=== PATIENT | female | born 1995 | race Caucasian/White ===

== ENCOUNTER 2020-08-11 09:02 | Emergency (ER) | payer OTHER, SELFPAY ==
--- NOTE | 2020-08-11 09:06 | ED.URI ---
HPI - URI/Sore Throat General Chief Complaint: Upper Respiratory Infection Stated Complaint: Sore Throat Time Seen by Provider: 08/11/20 09:20 Source: patient and RN notes reviewed Mode of arrival: ambulatory Limitations: no limitations History of Present Illness HPI Narrative: 25-year-old female presents with concern for sore throat. Reports she went to the dentist on Wednesday, the next morning woke up with a burning and sore throat. Reports sore throat is worse in the morning and improves slightly throughout the day. She denies any other symptoms such as rhinorrhea, nasal congestion, fever, ear pain, headache, nausea, vomiting, diarrhea, body aches, chills, sweats, cough, shortness of breath, loss of taste and smell. Denies any intervention MD elicited complaint: sore throat Related Data Home Medications Medication Instructions Recorded Confirmed No Home Medications 08/11/20 08/11/20 Allergies Allergy/AdvReac Type Severity Reaction Status Date / Time naproxen Allergy Severe SHORTNESS Verified 08/11/20 09:12 OF BREATH,CARDIAC ARREST Review of Systems Review of Systems: Narrative: CONSTITUTIONAL: Denies malaise, chills, sweats, or fever. EYES: Denies visual changes, redness, or discharge. ENT: Denies rhinorrhea, congestion, sinus pain, otalgia. Reports sore throat. CARDIOVASCULAR: Denies chest pain, palpitations, or edema. RESPIRATORY: Denies cough or dyspnea. GASTROINTESTINAL: Denies abdominal pain, nausea, vomiting, diarrhea SKIN: Denies rash or itching. MUSCULOSKELETAL: Denies myalgia. NEUROLOGIC: Denies headache. All systems reviewed & are unremarkable except as noted in HPI and below PMFSH Social History Social History (System 12/19/19 @ 13:24 by Melody Mendieta) Smoking status: Never smoker Second hand tobacco smoke exposure: No Alcohol intake: never Gender identity (if verbalized by the patient): Female Comments At time of signature, agree with nursing past medical, surgical, social and family history. There is no relevant family history pertinent to the presenting complaint Exam Narrative: Exam Narrative: GENERAL: Well-appearing, well-nourished, and in no acute distress. HEAD: Normocephalic EYES: PERRLA, conjunctivae clear ENT: Nares clear, turbinates mildly edematous and erythematous, clear discharge. Mucous membranes moist. TM pearly torre with sharp light reflex bilaterally; no tragal tenderness. Oropharynx not erythematous without lesions. Tonsils not enlarged and without exudate, no drooling, no hoarseness, no trismus, uvula midline. NECK: Supple. No lymphadenopathy CHEST: Clear to auscultation, breath sounds equal. No wheezing, rhonchi, rales, or stridor. No respiratory distress, speaks in full sentences. HEART: Regular rate and rhythm. No murmur heard. SKIN: Warm, dry, no rash. NEURO: Alert and oriented x3. PSYCH: Normal mood and affect Course Course Emergency Course: Patient is aware of diagnosis, understands and agrees to treatment plan. Anticipatory guidance given. Patient agrees to follow-up as directed and is aware of reasons to seek care at the emergency department. Portions of this record may have been created with voice recognition software Vital Signs Vital signs: Vital Signs Temperature 97.2 F L 08/11/20 09:19 Pulse Rate 75 08/11/20 09:19 Respiratory Rate 18 08/11/20 09:19 Blood Pressure 120/83 08/11/20 09:19 Pulse Oximetry 100 08/11/20 09:19 Temperature 97.2 F L 08/11/20 09:19 Pulse Rate 75 08/11/20 09:19 Respiratory Rate 18 08/11/20 09:19 Blood Pressure 120/83 08/11/20 09:19 Pulse Oximetry 100 08/11/20 09:19 Reviewed. MDM - URI/Sore Throat MDM Narrative Medical decision making narrative: Differential diagnosis considered: [place]a virus, strep pharyngitis, allergic rhinitis, upper respiratory tract infection, sinusitis, rhinosinusitis, nasopharyngitis. viral pharyngitis, otitis media, otitis externa, pneumonia,
[2020-08-11 09:19] VITALS: BP 120/83; PULSE 75; RESP 18; TEMP 36.2; O2SAT 100
== END 2020-08-11 09:56 | disposition home or self-care (01) ==
PROVIDERS: Emergency Provider Nurse Practitioner
DX: J02.9 Acute pharyngitis, unspecified (principal); Z20.822 Contact with and (suspected) exposure to COVID-19
CPT/HCPCS: 87081; 87426; 87880; 99213; C9803; G0463

== ENCOUNTER → 2021-07-04 11:59 | Outpatient (CLI) | payer OTHER, SELFPAY ==
--- NOTE | ~2021-07-04 | MR_ITS ---
EXAMINATION: MR brain/brain stem wo con DATE: 07/04/2021 12:46 INDICATION: Benign paroxysmal vertigo, unspecified ear. TECHNIQUE: Magnetic resonance imaging (MRI) of the brain and brainstem was performed without intraven ous contrast. Sequences included sagittal and axial T1-weighted FSE, axial diffusion-weighted FS EPI, axial T2*-weighted GRE, axial T2-weighted FLAIR Propeller, and axial T2-weighted Propeller. Apparent diffusion coefficient (ADC) maps were created. COMPARISON: Brain MRI 05/15/2013, head CT 06/22/2013 FINDINGS: There is no intracranial hemorrhage, acute infarction, or abnormal intracranial mass lesion . The ventricles are normal in size. The paranasal sinuses are clear. The orbits are normal. There ar e bilateral mastoid effusions. IMPRESSION: 1. Normal brain. 2. Bilateral mastoid effusions. Reviewed, dictated and finalized at location A. B THERAPIST
== END ==
PROVIDERS: Visit Provider Otolaryngology
DX: H81.10 Benign paroxysmal vertigo, unspecified ear (principal); H74.8X3 Other specified disorders of middle ear and mastoid, bilateral
CPT/HCPCS: 70551

== ENCOUNTER 2021-08-28 17:55 | Emergency (ER) | payer OTHER, SELFPAY ==
--- NOTE | 2021-08-28 18:04 | ED.GENADULT ---
HPI - General Adult General Chief complaint: Fever Stated complaint: bodyaches/vag bleeding (PG 4 weeks?) Time Seen by Provider: 08/28/21 18:00 Source: patient, RN notes reviewed and old records reviewed Mode of arrival: ambulatory Limitations: no limitations History of Present Illness HPI narrative: 26-year-old female presents to the [facility] with body aches and fever since yesterday. Also reports vaginal bleeding and had a Home positive test 2 weeks ago. Patient denies any chest pain or shortness of breath, states it feels like her heart is racing. Patient does report generalized abdominal discomfort especially between her hips. Had a baby 5 months ago. Denies nausea or vomiting. Denies urinary symptoms Related Data Home Medications Medication Instructions Recorded Confirmed labetalol 100 mg tablet 100 mg PO Q12H 05/19/21 meclizine 25 mg tablet 25 mg PO BID 05/19/21 norethindrone (contraceptive) 0.35 0.35 mg PO DAILY 05/19/21 mg tablet Allergies Allergy/AdvReac Type Severity Reaction Status Date / Time naproxen Allergy Severe SHORTNESS Verified 07/09/21 14:22 OF BREATH,CARDIAC ARREST Review of Systems Review of Systems: All systems reviewed & are unremarkable except as noted in HPI and below Constitutional: Constitutional: Reports as per HPI, Reports chills, Reports fever(s) and Reports weakness Eyes: Eyes: Reports no additional eye complaints ENT: Reports system reviewed and no additional complaints, except as documented, Denies dysphagia and Denies sore throat Cardiovascular: Cardiovascular: Reports no additional cardiovascular complaints and Denies chest pain Respiratory: Respiratory: Reports no additional respiratory complaints, Denies chest congestion, Denies cough, Denies dyspnea and Denies wheezing Gastrointestinal: Gastrointestinal: Reports as per HPI, Reports abdominal pain, Denies diarrhea, Denies nausea and Denies vomiting Genitourinary: Genitourinary: Reports no additional female genitourinary complaints, Denies nocturia and Denies dysuria Comments: Reports she had a positive home test 2 weeks ago, had vaginal bleeding for a couple of weeks Musculoskeletal: Musculoskeletal: Reports as per HPI, Reports back pain, Reports myalgias and Reports muscle cramps Integumentary/Breasts: Skin/Breast: Reports system reviewed and no additional complaints, except as docu Neurologic: Reports system reviewed and no additional complaints, except as documented Psychiatric: Psychiatric: Reports no additional psychiatric complaints Allergic/Immunologic: Allergic/Immunologic: Reports no additional allergic/immunologic complaints [facility] Past Medical History Medical History (Updated 08/28/21 @ 18:36 by Shannan Neves) Arnold-Chiari deformity Asthma Family History Family History Mother Hypertension Social History Social History Smoking status: Never smoker Second hand tobacco smoke exposure: No Alcohol intake: never Gender identity (if verbalized by the patient): Female Comments At the time of my signature, I reviewed and agree with the nursing past medical, surgical, social, and family history. There is no relevant family history pertinent to the patient complaint. Exam Const: General: alert, acute distress moderate (Pain), ill appearing acutely (Moderately) and well groomed Nutritional Appearance: well nourished Orientation/consciousness: patient oriented x3 Limitations: no limitations HENMT: Head: normal to inspection Ears: external ears normal Eyes: Pupils: Equal, round and reactive pupils present Neck: Neck: normal visual inspection, no lymphadenopathy and no meningeal signs Chest: Chest palpation & inspection: normal inspection of the chest Resp: Effort & Inspection: normal respiratory effort and no use of accessory muscles Auscultation: clear
[2021-08-28 18:10] VITALS: BP 151/87; PULSE 137; RESP 22; TEMP 37.9; O2SAT 100
--- NOTE | 2021-08-28 18:23 | ECG_ITS ---
Measurements Intervals [place] Rate: 136 P: 71 UT: 165 QRS: 28 QRSD: 81 T: 21 QT: 331 QTc: 498 Interpretive Statements SINUS TACHYCARDIA NONSPECIFIC ST & T-WAVE ABNORMALITY- ANTEROLAT/INF LEADS BASELINE ARTIFACT- I, II, AVR ABNORMAL ECG Electronically Signed On 08-28-2021 20:31:38 [employer]RE[employer] OFFICER [employer]GEANT by Robert Dumont D.O.
== END 2021-08-28 18:30 | disposition short-term general hospital (02) ==
PROVIDERS: Emergency Provider Nurse Practitioner; PCP Nurse Practitioner Family
DX: O26.899 Other specified pregnancy related conditions, unspecified trimester (principal); R10.31 Right lower quadrant pain; O99.411 Diseases of the circulatory system complicating pregnancy, first trimester; Z3A.01 Less than 8 weeks gestation of pregnancy; O99.891 Other specified diseases and conditions complicating pregnancy; R50.9 Fever, unspecified; J45.909 Unspecified asthma, uncomplicated; Q07.00 Arnold-Chiari syndrome without spina bifida or hydrocephalus
CPT/HCPCS: 81003; 81025; 87804; 93005; 99213; G0463

== ENCOUNTER 2021-08-28 18:45 | Emergency (ER) | payer OTHER, SELFPAY ==
--- NOTE | ~2021-08-28 | US_ITS ---
EXAMINATION: US OB <=14 wk fetus w TV DATE: 08/28/2021 20:01 INDICATION: Right adnexal pain. TECHNIQUE: Real-time transabdominal and transvaginal pelvic ultrasound was performed. COMPARISON: None. FINDINGS: TRANSABDOMINAL ULTRASOUND: The uterus measures 7.6 x 4.5 x 5.9 cm. TRANSVAGINAL ULTRASOUND: The endometrial complex measures 21 mm in thickness. There is no intrauterin e gestational sac. There are nabothian cysts in the cervix. The right ovary measures 3.3 x 2.2 x 2.1 cm. The right ovary, there is a 16 mm cyst containing a 4 mm cyst. The left ovary measures 4.0 x 2.9 x 2.7 cm. There is a 3.0 cm cyst in left ovary. There is normal vascular flow in the ovaries. There is trace free fluid in the pelvis. IMPRESSION: 1. No visible intrauterine gestational sac, which may be normal in early . Ectopic pregnanc y and spontaneous are not excluded. Note that the 16 mm cyst in right ovary could be a benig n cyst, but a gestational sac could have the same appearance. Serial beta-hCGs are recommended. Reviewed, dictated and finalized at location E. OS ARCHITECT IMPRESSION: 1. No visible intrauterine gestational sac, which may be normal in early pregn jose m. Ectopic and spontaneous are not excluded. Note that th e 16 mm cyst in right ovary could be a benign cyst, but a gestational sac could have the same appearance. Serial beta-hCGs are recommended.
--- NOTE | ~2021-08-28 | CT_ITS ---
EXAMINATION: CT abdomen pelvis w con DATE: 08/28/2021 20:38 INDICATION: Right lower quadrant abdominal pain. Fever. Vaginal bleeding. TECHNIQUE: Computed tomography (CT) of the abdomen and pelvis was performed with 100 mL Omnipaque 350 intravenous contrast. Automated exposure control and iterative reconstruction technique were employe d. The dose-length product was 920.68 mGy-cm. COMPARISON: CT abdomen and pelvis 08/31/2017 FINDINGS: The visualized portions of the lung bases demonstrate mild atelectasis. No pleural effusion . The heart size is normal. No pericardial effusion. The liver, gallbladder, spleen, pancreas, adrena l glands, and kidneys are normal. There are no dilated loops of bowel. The appendix is normal. There are nabothian cysts in the cervix. There are no pathologically enlarged lymph nodes. There is no free intraperitoneal fluid. The spine is unremarkable. IMPRESSION: 1. No etiology for the patient's symptoms. Reviewed, dictated and finalized at location E. ANICAL ADJUSTER
[2021-08-28 18:48] VITALS: BP 147/104; PULSE 137; RESP 20; TEMP 38.6; O2SAT 98
[2021-08-28 19:32] LABS: Basophils Percent Auto 0.3 % (0.2-1.2); Eosinophils Absolute Auto 0.1 K/mm3 (0-0.3); Eosinophils Percent Auto 0.5 % (0-4.4); Hematocrit 42.4 % (37.0-47.0); Hemoglobin 13.9 g/dL (12.0-15.0); Immature Granulocyte Absolute 0.03 K/mm3 (0.00-0.031); Immature Granulocyte Percent A 0.2 % (0-0.5); Lymphocytes Absolute Auto 1.45 K/mm3 (0.9-3.2); Lymphocytes Percent Auto 10.9 % (18.3-44.2); Mean Corpuscular HGB Conc 32.8 g/dl (32-36); Mean Corpuscular Hemoglobin 29.1 pg (26-34); Mean Corpuscular Volume 88.9 fl (80-100); Mean Platelet Volume 10.4 fl (7.4-10.4); Monocytes Percent Auto 7.6 % (2.6-8.5); Neutrophils Absolute Auto 10.8 K/mm3 (1.3-6.7); Neutrophils Percent Auto 80.5 % (45.5-73.1); Platelet Count Result 208 k/mm3 (150-375); Red Blood Count 4.77 M/mm3 (4.2-5.4); Red Cell Distribution Width 11.9 % (11.5-14.5); White Blood Count 13.4 K/mm3 (4.5-10.0)
[2021-08-28 19:42] LABS: INR 0.9; Prothrombin Time 12.4 Seconds (11.1-14.7)
[2021-08-28 19:43] LABS: Partial Thromboplastin Time 26.9 SECONDS (22.3-36.8)
[2021-08-28 19:47] LABS: Alanine Aminotransferase 40 U/L (4-35); Albumin Level 4.5 g/dL (3.5-5.1); Alkaline Phosphatase 96 U/L (38-126); Anion Gap 7 mmol/L (8-16); Aspartate Amino Transferase 40 U/L (14-36); Bilirubin,Total 0.4 mg/dL (0.2-1.3); Blood Urea Nitrogen 9 mg/dL (7-17); Calcium 9.8 mg/dL (8.4-10.2); Carbon Dioxide 24 mmol/L (22-30); Chloride 107 mmol/L (98-107); Estimated CRCL calculation 104 ml/min; Estimated Glomerular Filt Rate > 60; Glucose 105 mg/dL (65-110); Lipase 59 U/L (23-300); Potassium 3.7 mmol/L (3.4-5.0); Sodium 138 mmol/L (137-145)
[2021-08-28 20:03] LABS: Beta HCG Quantitative < 2.39 mIU/ML
--- NOTE | 2021-08-28 20:23 | ED.ABDPAIN ---
HPI - Abdominal Pain General Chief Complaint: Abdominal Pain <Ilan Weinberg MD - Last Filed: 08/28/21 21:35> Stated Complaint: abd pain <Ilan Weinberg MD - Last Filed: 08/28/21 21:35> Time Seen by Provider: 08/28/21 18:55 <Ilan Weinberg MD - Last Filed: 08/28/21 21:35> History of Present Illness HPI narrative: Patient is a 26-year-old female who presents ER with right lower quadrant abdominal pain. Patient reports pain has been ongoing over the last week increasing each day. She has developed fever over the last couple days and fever would not go away despite taking medication today. Pain is worse with movement. She reports that she had been having some vaginal bleeding for about 1 month. It stopped about 1 week ago and she developed some discharge. She had a positive test 2 weeks ago. She has not followed up regarding this positive test. Urine negative at the urgent care that she visited prior to arrival here. Patient is not breast-feeding. No history of STI in the past. No breast pain or redness. <Ilan Weinberg MD - Last Filed: 08/28/21 21:35> Related Data Home Medications: Home Medications Medication Instructions Recorded Confirmed labetalol 100 mg tablet 100 mg PO Q12H 05/19/21 meclizine 25 mg tablet 25 mg PO BID 05/19/21 norethindrone (contraceptive) 0.35 0.35 mg PO DAILY 05/19/21 mg tablet <Ilan Weinberg MD - Last Filed: 08/28/21 21:35> Allergies/Adverse Reactions: Allergies Allergy/AdvReac Type Severity Reaction Status Date / Time naproxen Allergy Severe SHORTNESS Verified 07/09/21 14:22 OF BREATH,CARDIAC ARREST <Ilan Weinberg MD - Last Filed: 08/28/21 21:35> Review of Systems Review of Systems: All systems reviewed & are unremarkable except as noted in HPI and below <Ilan Weinberg MD - Last Filed: 08/28/21 21:35> Constitutional: Constitutional: Reports chills, Reports fatigue and Reports fever(s) <Ilan Weinberg MD - Last Filed: 08/28/21 21:35> ENT: Denies nasal congestion and Denies sore throat <Ilan Weinberg MD - Last Filed: 08/28/21 21:35> Cardiovascular: Cardiovascular: Denies chest pain, Denies rapid heart rate and Denies radiating jaw, neck or arm pain <Ilan Weinberg MD - Last Filed: 08/28/21 21:35> Respiratory: Respiratory: Denies cough and Denies dyspnea <Ilan Weinberg MD - Last Filed: 08/28/21 21:35> Gastrointestinal: Gastrointestinal: Reports abdominal pain, Denies diarrhea, Denies nausea and Denies vomiting <Ilan Weinberg MD - Last Filed: 08/28/21 21:35> Genitourinary: Genitourinary: Denies abnormal vaginal bleeding, Denies dysuria, Denies flank pain and Reports vaginal discharge <Ilan Weinberg MD - Last Filed: 08/28/21 21:35> Neurologic: Denies headache(s), Denies focal weakness and Denies numbness <Ilan Weinberg MD - Last Filed: 08/28/21 21:35> PMFSH Past Medical History Medical History: Medical History (Updated 08/29/21 @ 00:00 by Chi Hoffman) Arnold-Chiari deformity Asthma <Ilan Weinberg MD - Last Filed: 08/28/21 21:35> Surgical History Surgical History: Surgical History (Updated 08/28/21 @ 21:26 by Ilan Weinberg MD) No pertinent past surgical history <Ilan Weinberg MD - Last Filed: 08/28/21 21:35> Family History Family History: Family History Mother Hypertension <Ilan Weinberg MD - Last Filed: 08/28/21 21:35> Social History Social History: Social History Smoking status: Never smoker Second hand tobacco smoke exposure: No Alcohol intake: never Gender identity (if verbalized by the patient): Female <Ilan Weinberg MD - Last Filed: 08/28/21 21:35> Exam Narrative: GENERAL: Uncomfortable-appearing, well-nourished, and in no acute distress. HEAD: Normo
[2021-08-28 20:25] LABS: Add Urine Microscopic? NO; Appearance Urine Clear (Clear); Bilirubin Urine Negative (Negative); Blood Urine Negative (Negative); Color Urine Straw (Yellow); Glucose Urine UA Negative (Negative); Ketones Urine Negative (Negative); Leukocyte Esterase Ur Negative LEU/UL (Negative); Nitrate Urine Negative (Negative); Protein Urine Negative (Negative); Urobilinogen Urine Negative mg/dL (<2.0)
[2021-08-28] MEDS: MORPHINE SULFATE (*CRX) 4 MG/ML INJ IV PUSH ×2 (20:49→22:03)
[2021-08-28] MEDS: SODIUM CHLORIDE 0.9% IV 1,000 ML 999 ML IV CONT (20:49)
--- NOTE | 2021-08-28 22:04 | PC.NURSE ---
no computer in room. unable to scan [employer]
[2021-08-28 22:50] LABS: Influenza A QL RT-PCR Negative (Negative); Influenza B QL RT-PCR Negative (Negative); SARS-CoV-2 RNA PCR Negative
[2021-08-28 22:59] VITALS: BP 125/74; PULSE 102; RESP 16; O2SAT 98
[2021-08-29 00:47] VITALS: BP 131/77; PULSE 95; RESP 15; O2SAT 98
[2021-08-29] MEDS: cefTRIAXone 1 GM VIAL 0.5 GM IM (00:47)
== END 2021-08-29 00:39 | disposition home or self-care (01) ==
PROVIDERS: Emergency Medicine; Emergency Provider Emergency Medicine; PCP Nurse Practitioner Family
DX: R10.31 Right lower quadrant pain (principal); Z20.822 Contact with and (suspected) exposure to COVID-19; J45.909 Unspecified asthma, uncomplicated
CPT/HCPCS: 36415; 74177; 76801; 76817; 80053; 81003; 81025; 83690; 84702; 85025; 85610; 85730; 86850; 86900; 86901; 87070; 87086; 87491; 87502; 87591; 87804; 87808; 93005; 96361; 96372; 96374; 96375; 99284; C9803; J0696; J2270; J7030; Q9967; U0003; U0005

== ENCOUNTER 2022-03-20 12:57 | Emergency (ER) | payer OTHER, SELFPAY ==
[2022-03-20] VITALS (14 sets, daily range): BP systolic 130–163; BP diastolic 68–104; PULSE 68–113; RESP 16; TEMP 36.2; O2SAT 98–100
--- NOTE | ~2022-03-20 | US_ITS ---
EXAMINATION: US OB <= 14 weeks fetus DATE: 03/20/2022 15:20 INDICATION: Low abdominal pain. Fall. TECHNIQUE: Real-time transabdominal pelvic ultrasound was performed. COMPARISON: Ultrasound 08/28/2021 FINDINGS: The uterus measures 11.3 x 6.5 x 10.5 cm. There is an intrauterine gestational sac with pole. F etal heart motion is identified measuring 147 beats per minute (bpm) by M-mode Doppler. The placenta is posterior and is normal. The cervical length is normal. The ovaries are not visualized. There is n o free fluid in the pelvis. IMPRESSION: 1. Single living intrauterine gestation. Reviewed, dictated and finalized at location A.
--- NOTE | ~2022-03-20 | CT_ITS ---
EXAMINATION: CT cervical spine wo con DATE: 03/20/2022 15:00 INDICATION: Head injury. TECHNIQUE: Computed tomography (CT) of the cervical spine was performed without intravenous contrast. Automated exposure control and iterative reconstruction technique were employed. The dose-length pro duct was 438.88 mGy-cm. COMPARISON: None FINDINGS: There is 11 degrees levoscoliosis of cervical spine. There is hypolordosis of cervical spin e. Vertebral body heights and intervertebral disc heights are normal. At C7-T1, there is severe bilat eral facet joint osteoarthritis. No neural foraminal stenosis or central canal stenosis. IMPRESSION: 1. No fracture. Reviewed, dictated and finalized at location A. IMPRESSION: 1. No fracture.
--- NOTE | ~2022-03-20 | CT_ITS ---
EXAMINATION: CT brain wo con DATE: 03/20/2022 14:59 INDICATION: Head injury. TECHNIQUE: Computed tomography (CT) of the head was performed without intravenous contrast. The mA wa s adjusted according to patient size. Iterative reconstruction technique was employed. The dose-lengt h product was 605.33 mGy-cm. COMPARISON: Head CT 06/22/2013 FINDINGS: There is no intracranial hemorrhage, acute infarction, or abnormal intracranial mass lesion . The ventricles are normal in size. The orbits are normal. There is mucosal thickening in the parana jacky sinuses. There are bilateral mastoid effusions. IMPRESSION: 1. Normal brain. Reviewed, dictated and finalized at location A. IMPRESSION: 1. Normal brain.
[2022-03-20] MEDS: ACETAMINOPHEN 325 MG TABLET 650 MG PO (14:36)
--- NOTE | 2022-03-20 14:44 | ED.GENADULT ---
HPI - General Adult General Chief complaint: Head Injury Stated complaint: head injury Time Seen by Provider: 03/20/22 13:27 History of Present Illness HPI narrative: 26-year-old female currently being worked up for seizure presenting the emergency department for evaluation after having a fall downstairs. Patient states she is unsure what caused the fall but does not feel that she lost consciousness. Patient states she did strike her head. Patient is 14 weeks . Patient is complaining of head and neck pain. Patient is complaining of right lateral rib pain. Related Data Home Medications Medication Instructions Recorded Confirmed labetalol 100 mg tablet 100 mg PO Q12H 05/19/21 meclizine 25 mg tablet 25 mg PO BID 05/19/21 norethindrone (contraceptive) 0.35 0.35 mg PO DAILY 05/19/21 mg tablet Allergies Allergy/AdvReac Type Severity Reaction Status Date / Time naproxen Allergy Severe SHORTNESS Verified 07/09/21 14:22 OF BREATH,CARDIAC ARREST Review of Systems Review of Systems: CONSTITUTIONAL: Denies fever, chills, or sweats. EYES: Denies visual changes, redness, or discharge. ENT: Denies rhinorrhea, congestion, sore throat, or otalgia. CARDIOVASCULAR: Denies chest pain, palpitations, or edema. RESPIRATORY: Denies cough or dyspnea. GASTROINTESTINAL: Denies abdominal pain, nausea, vomiting, or diarrhea. GENITOURINARY: Denies dysuria or hematuria. SKIN: Denies rash or itching. MUSCULOSKELETAL: Denies back pain, joint pain, or myalgia. NEUROLOGIC: Head injury PMFSH Past Medical History Medical History (Updated 03/21/22 @ 00:00 by Chi Hoffman) Arnold-Chiari deformity Asthma Surgical History Surgical History (Updated 08/28/21 @ 21:26 by Ilan Weinberg MD) No pertinent past surgical history Family History Family History Mother Hypertension Social History Social History Smoking status: Never smoker Second hand tobacco smoke exposure: No Alcohol intake: never Gender identity (if verbalized by the patient): Female Exam Narrative: APPEARANCE: Well appearing, no pain, no distress, well-nourished. HEAD: normocephalic, atraumatic. EYES: PERRLA/EOMI, conjunctivae clear. NOSE: Normal no drainage EARS:TMS clear with good light reflex. THROAT: Pharynx clear, no exudate. NECK: Supple. No adenopathy, no masses. RESPIRATORY: Airway patent, respirations nonlabored. Clear to auscultation bilaterally, no rales, rhonchi, wheezing. CARDIOVASCULAR: Regular rate and rhythm without murmurs rubs or gallops. ABDOMINAL: Soft, nontender, nondistended, normal bowel sounds MUSCULOSKELETAL: Moves all extremities. Strength/ROM intact, No edema, No calf tenderness. NEURO: Alert. Cranial nerves II through XII intact. Grossly intact SKIN: Warm, dry. Normal Color Course Course Emergency Course: Patient declined the chest x-ray. Patient states her ribs feel bruised but did feel improved. Patient denies any current shortness of breath. Patient had negative head and neck CT. Patient had a ultrasound showing active movement with no acute abnormality. Patient was able to ambulate in the emergency department with out any issues. Patient will have close follow-up with her primary care physician and with [facility]. All questions and concerns were addressed. Vital Signs Vital signs: Vital Signs Temperature 97.2 F L 03/20/22 13:00 Pulse Rate 113 H 03/20/22 13:00 Respiratory Rate 16 03/20/22 13:00 Blood Pressure 156/95 H 03/20/22 13:00 Pulse Oximetry 100 03/20/22 13:00 Temperature 97.2 F L 03/20/22 13:00 Pulse Rate 68 03/20/22 17:24 Respiratory Rate 16 03/20/22 17:24 Blood Pressure 130/68 03/20/22 17:24 Pulse Oximetry 98 03/20/22 17:24 Medical Decision Making Vital Signs Vital Signs: Vital Signs Temperature 97.2 F L 03/20/22 13:00
== END 2022-03-20 17:26 | disposition home or self-care (01) ==
PROVIDERS: Emergency Provider Emergency Medicine; PCP Nurse Practitioner Family
DX: O9A.212 Injury, poisoning and certain other consequences of external causes complicating pregnancy, second trimester (principal); S09.90XA Unspecified injury of head, initial encounter; S19.9XXA Unspecified injury of neck, initial encounter; R07.89 Other chest pain; O99.512 Diseases of the respiratory system complicating pregnancy, second trimester; J45.909 Unspecified asthma, uncomplicated; O99.891 Other specified diseases and conditions complicating pregnancy; Q07.00 Arnold-Chiari syndrome without spina bifida or hydrocephalus; Z3A.14 14 weeks gestation of pregnancy; W10.9XXA Fall (on) (from) unspecified stairs and steps, initial encounter
CPT/HCPCS: 70450; 72125; 76801; 99284; A9270

== ENCOUNTER 2024-02-02 21:00 | Observation (INO) | payer SELFPAY ==
--- NOTE | ~2024-02-02 | CT_ITS ---
CT brain wo con Ordering provider: Shemar Car MD History: 28 years Female with . Altered mental status . Comparison: March 20, 2022 Technique: CT of the head without contrast. The dose-length product was 681 mGy-cm. FINDINGS: BRAIN PARENCHYMA AND CSF SPACES: No midline shift, mass effect or hemorrhage. The brain parenchyma a nd CSF spaces are otherwise normal. VISUALIZED PARANASAL SINUSES: Well aerated. MASTOIDS: Well aerated. BONES: The bones appear intact. SOFT TISSUES: Visualized nasopharynx is normal. Superficial soft tissues are normal. IMPRESSION: No acute intracranial findings. Reviewed, dictated and finalized at location A.
--- NOTE | ~2024-02-02 | CT_ITS ---
CTA chest PE protocol Ordering provider: Shemar Car MD History: 28 years Female with . Syncope evaluate for PE . Comparison: May 07, 2018 Technique: CT angiogram chest was performed following timed intravenous injection of contrast. Thin s lice axial images and reformatted coronal images were obtained. Three dimensional reformatted images of the chest were also obtained using a [employer] workstation. . Automated exposure control and iterati ve reconstruction technique were employed. The dose-length product was 455.71 mGy-cm. 150 Omnipaque 3 50 was given IV. Findings: PULMONARY ARTERIES: No pulmonary embolus. VISUALIZED THORACIC INLET: Normal. MEDIASTINUM: Aorta/coronary arteries: The thoracic aorta is normal. Heart/other: The heart is not enlarged. Lymph nodes: No mediastinal or hilar adenopathy. LUNGS: No pulmonary nodules or masses. No infiltrates or effusions. No pneumothorax. Dependent atelectatic c hanges. VISUALIZED UPPER ABDOMEN: the visualized upper abdomen is normal. MUSCULOSKELETAL: Soft tissues: The superficial soft tissues are normal. Bones: normal IMPRESSION: 1. No pulmonary embolism. 2. No acute cardiopulmonary pathology. Reviewed, dictated and finalized at location A.
--- NOTE | ~2024-02-02 | CT_ITS ---
CTA brain carotid Ordering provider: Shemar Car MD History: . Near syncope, prior CVA . Comparison: None. Technique: CT angiogram head and neck was performed following timed intravenous injection of contrast . Thin slice axial images and reformatted coronal images were obtained. Three dimensional reformatted images of the brain were also obtained using a [employer] workstation. The dose-length product was 987. 27 mGy-cm. 150 ML Omnipaque 350 was given IV. FINDINGS: HEAD: --ANTERIOR AND MIDDLE CEREBRAL ARTERIES AND BRANCHES: Normal caliber and contour. --INTERNAL CAROTID ARTERIES: Normal caliber and contour. --BASILAR ARTERY AND BRANCHES: Normal caliber and contour. No atheromatous disease. --POSTERIOR CEREBRAL ARTERIES: Normal caliber and contour --POSTERIOR COMMUNICATING ARTERIES: Not visualized which is probably related to congenital absence or small size. --ANEURYSM: None visualized. --BRAIN: Please refer to report of CT head performed the same day. --BONES AND SUPERFICIAL SOFT TISSUES: Please refer to report of CT head performed the same day. --PARANASAL SINUSES AND MASTOIDS: Please refer to report of CT head done the same day. NECK: --RIGHT CERVICAL CAROTID SYSTEM: Normal caliber and contour. Percent stenosis per NASCET criteria is 0%. No carotid dissection. Otherwise, no significant atheromatous disease or stenosis of the cervica l carotid system. --LEFT CERVICAL CAROTID SYSTEM: Normal caliber and contour. Percent stenosis per NASCET criteria is 0%. No carotid dissection. Otherwise, no significant atheromatous disease or stenosis of the cervical carotid system. --VERTEBRAL ARTERIES: Normal caliber and contour. --VISUALIZED AORTIC ARCH AND BRANCHING VESSELS: Normal caliber and contour. No significant atheromato us disease. --SOFT TISSUES: Normal. --CERVICAL SPINE: Normal. IMPRESSION: 1. Normal CTA head and neck. Percent stenosis per NASCET criteria is 0%. Reviewed, dictated and finalized at location A.
--- NOTE | ~2024-02-02 | XR_ITS ---
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 Comparison: None. FINDINGS: MEDIASTINUM: The cardiac silhouette is not enlarged. LUNGS: No infiltrates, effusions or pneumothorax. OTHER: No free air under the diaphragm. IMPRESSION: No acute cardiopulmonary pathology. Reviewed, dictated and finalized at location A.
--- NOTE | ~2024-02-02 | MR_ITS ---
MRI of the brain Clinical History: Syncope, CVA Technique: Axial and sagittal T1-weighted images were acquired. These were followed by axial T2-weigh daphnie, diffusion weighted, gradient, and FLAIR images. Following intravenous administration of 16 cc Mu ltiHance gadolinium, T1-weighted fat-sat imaging was performed in the axial and coronal Sagittal midline structures are intact planes. COMPARISON: 07/04/2021 Findings: No abnormal signal seen in the brain parenchyma. No acute infarct, intracranial hemorrhage, or mass lesion. Ventral subarachnoid spaces are unremarkable. Orbits are unremarkable. Paranasal sinuses are clear. T here are small bilateral mastoid effusions. Major intracranial flow voids are intact. Sagittal midline structures are intact. No abnormal postcontrast enhancement. IMPRESSION: Bilateral mastoid effusions, otherwise unremarkable exam. Reviewed, dictated and finalized at [facility].
[2024-02-02 20:57] VITALS: BP 156/109; PULSE 117; RESP 20; TEMP 36.9; O2SAT 100
[2024-02-02 21:12] VITALS: PULSE 114
--- NOTE | 2024-02-02 21:19 | ED.GENADULT ---
HPI - General Adult General Chief complaint: Altered Mental Status Stated complaint: Alerted, CP, syncope Time Seen by Provider: 02/02/24 21:09 History of Present Illness HPI narrative: Patient 8-year-old female who presents emergency department with chief complaint of altered mental status chest pain. Patient has prior history of CVA when she was about 2 years ago patient states over the last several days she has been having episodes of chest pain reports patient was playing a softball game started to feel as though she is having chest discomfort and also her feeling lightheaded feeling overall patient's friends reported that she had a near syncopal episode and was confused afterwards patient has 3 linear area your and reports that she has been staying are reviewed. Related Data Home Medications Medication Instructions Recorded Confirmed labetalol 100 mg tablet 100 mg PO Q12H 05/19/21 meclizine 25 mg tablet 25 mg PO BID 05/19/21 norethindrone (contraceptive) 0.35 0.35 mg PO DAILY 05/19/21 mg tablet Allergies Allergy/AdvReac Type Severity Reaction Status Date / Time naproxen Allergy Severe SHORTNESS Verified 02/02/24 21:12 OF BREATH,CARDIAC ARREST Review of Systems Review of Systems: A 10 system review of systems was completed on the patient and is negative except for what is stated in the HPI. Nursing and ancillary documentation was reviewed. PMFSH Past Medical History Medical History Arnold-Chiari deformity Asthma Surgical History Surgical History No pertinent past surgical history Family History Family History Mother Hypertension Social History Social History Smoking status: Never smoker Second hand tobacco smoke exposure: No Alcohol intake: never Gender identity (if verbalized by the patient): Female Exam Narrative: GENERAL: Well-appearing, well-nourished, and in no acute distress. HEAD: Normocephalic, atraumatic. EYES: PERRLA and EOMI. ENT: Nares clear, no rhinorrhea or epistaxis. Mucous membranes moist. NECK: Supple. CHEST: Clear to auscultation. No respiratory distress. HEART: Regular rate and rhythm. No murmur heard. Normal peripheral pulses. ABDOMEN: Soft, nontender, nondistended, normal active bowel sounds. EXTREMITIES: Normal range of motion. No edema. SKIN: Warm, dry, no rash. NEURO: No focal deficits. Alert and oriented x3 her her. PSYCH: Normal mood and affect. Course Vital Signs Vital signs: Vital Signs Temperature 36.9 C 02/02/24 20:57 Pulse Rate 117 H 02/02/24 20:57 Respiratory Rate 20 02/02/24 20:57 Blood Pressure 156/109 H 02/02/24 20:57 Pulse Oximetry 100 02/02/24 20:57 Oxygen Delivery Room Air 02/02/24 20:57 Temperature 36.9 C 02/02/24 20:57 Pulse Rate 87 02/03/24 00:27 Respiratory Rate 14 02/03/24 00:27 Blood Pressure 144/99 H 02/03/24 00:27 Pulse Oximetry 100 02/03/24 00:27 Oxygen Delivery Room Air 02/02/24 21:30 Medical Decision Making [facility] Narrative Medical decision making narrative: Differential diagnosis includes ACS, syncope, CVA, pulmonary embolism, dysrhythmia Laboratory studies were obtained on the patient showed normal CBC CMP was within normal limits initial troponin was negative lactic acid was slightly elevated at 2.2 troponin was less than 0.012 urinalysis showed no evidence UTI test was negative CT head showed no acute abnormality CTA head neck showed no acute abnormality CT pulmonary protocol showed no evidence of PE Chest x-ray showed no focal infiltrate Patient will be admitted for further care and observation Vital Signs Vital Signs: Vital Signs Temperature 36.9 C 02/02/24 20:
--- NOTE | 2024-02-02 21:26 | ECG_ITS ---
Test Date: 2024-02-02 21:34:54 Measurements Intervals [place] Rate: 105 P: 66 MO: 128 QRS: 24 QRSD: 94 T: 8 QT: 360 QTc: 476 Interpretive Statements SINUS TACHYCARDIA BORDERLINE ST-T WAVE ABNORMALITY- INF/LAT LEADS BASELINE ARTIFACT- I, II, III, AVL, AVF ABNORMAL ECG No previous ECG available for comparison Electronically Signed On 02-03-2024 06:25:57 CDT by Robert Dumont D.O.
[2024-02-02 21:30] VITALS: O2SAT 100
[2024-02-02] MEDS: SODIUM CHLORIDE 0.9% IV 1,000 ML 999 ML IV CONT (21:36)
[2024-02-02 21:45] LABS: Basophils Percent Auto 0.4 % (0.2-1.2); Eosinophils Absolute Auto 0.2 K/mm3 (0-0.3); Eosinophils Percent Auto 1.9 % (0-4.4); Hematocrit 39.5 % (37.0-47.0); Hemoglobin 13.5 g/dL (12.0-15.0); Immature Granulocyte Absolute 0.03 K/mm3 (0.00-0.031); Immature Granulocyte Percent A 0.3 % (0-0.5); Lymphocytes Absolute Auto 3.15 K/mm3 (0.9-3.2); Lymphocytes Percent Auto 30.2 % (18.3-44.2); Mean Corpuscular HGB Conc 34.2 g/dl (32-36); Mean Corpuscular Volume 87.8 fl (80-100); Mean Platelet Volume 10.9 fl (7.4-10.4); Monocytes Absolute Auto 0.6 K/mm3 (0.1-0.6); Monocytes Percent Auto 5.5 % (2.6-8.5); Neutrophils Absolute Auto 6.4 K/mm3 (1.3-6.7); Neutrophils Percent Auto 61.7 % (45.5-73.1); Platelet Count Result 205 k/mm3 (150-375); Red Cell Distribution Width 11.6 % (11.5-14.5); White Blood Count 10.4 K/mm3 (4.5-10.0)
[2024-02-02 21:47] LABS: Appearance Urine Clear (Clear); Bilirubin Urine Negative (Negative); Blood Urine Negative (Negative); Color Urine Yellow (Yellow); Glucose Urine UA Negative (Negative); Ketones Urine Negative (Negative); Leukocyte Esterase Ur Negative LEU/UL (Negative); Nitrate Urine Negative (Negative); Protein Urine Negative (Negative); Specific Grav Ur 1.005 (1.001-1.035); Urobilinogen Urine 0.2 mg/dL (<2.0)
[2024-02-02 21:54] LABS: Add Urine Microscopic? NO
[2024-02-02 21:55] LABS: INR 0.9; Partial Thromboplastin Time 25.6 Seconds (22.3-36.8); Prothrombin Time 12.5 Seconds (11.1-14.7)
[2024-02-02 22:01] LABS: Alanine Aminotransferase 16 U/L (6-35); Albumin Level 4.6 g/dL (3.5-5.1); Alkaline Phosphatase 58 U/L (38-126); Anion Gap 12 mmol/L (4-12); Aspartate Amino Transferase 23 U/L (14-36); Bilirubin,Total 0.6 mg/dL (0.2-1.3); Blood Urea Nitrogen 14 mg/dL (7-17); Calcium 9.4 mg/dL (8.4-10.2); Carbon Dioxide 21 mmol/L (22-30); Chloride 105 mmol/L (98-107); Estimated CRCL calculation 88 ml/min; Estimated Glomerular Filt Rate > 60; Glucose 105 mg/dL (65-110); Lipase 65 U/L (23-300); Magnesium 1.9 mg/dL (1.6-2.3); Potassium 3.3 mmol/L (3.4-5.0); Sodium 138 mmol/L (137-145)
[2024-02-02 22:03] LABS: Lactic Acid Reflex 2.2 mmol/L (0.7-2.0)
[2024-02-02 22:10] LABS: NT Pro B Type Natriuretic Pept 24 pg/mL (19.9-100)
[2024-02-02 22:13] LABS: Troponin I < 0.012 ng/mL (0.000-0.034)
[2024-02-02 22:15] VITALS: BP 137/107; PULSE 80; RESP 20; O2SAT 100
--- NOTE | 2024-02-02 22:15 | PC.NURSE ---
Patient states that she has residual left sided weakness from her stroke, but is only present when patient is fatigued.
[2024-02-02 22:21] LABS: Pregnancy On Board Control Positive; Urine Pregnancy Test Negative
--- NOTE | 2024-02-02 22:47 | ECG_ITS ---
Test Date: 2024-02-02 22:48:15 Measurements Intervals [place] Rate: 76 P: 18 ME: 139 QRS: 30 QRSD: 89 T: 33 QT: 411 QTc: 463 Interpretive Statements SINUS RHYTHM BORDERLINE ST-T WAVE ABNORMALITY- INFERIOR LEADS BORDERLINE ECG Compared to ECG 02/02/2024 21:34:54 HEART RATE HAS DECREASED Electronically Signed On 02-03-2024 06:26:45 CDT by Robert Dumont D.O.
--- NOTE | 2024-02-02 23:03 | PC.NURSE ---
Patient states that she feels chest tightness and feels exhausted. Notified EDP Dr. Car
[2024-02-03] VITALS (13 sets, daily range): BP systolic 117–165; BP diastolic 72–99; PULSE 59–87; RESP 14–16; TEMP 36.3–36.6; O2SAT 96–100; BMI 31.7
--- NOTE | 2024-02-03 00:06 | ECG_ITS ---
Test Date: 2024-02-03 00:14:17 Measurements Intervals [place] Rate: 84 P: 71 DE: 171 QRS: 36 QRSD: 86 T: 40 QT: 401 QTc: 476 Interpretive Statements SINUS RHYTHM WITH SINUS ARRHYTHMIA BORDERLINE ST-T WAVE ABNORMALITY- INFERIOR LEADS BASELINE ARTIFACT- I, II, III, AVR, AVL, AVF, V3-V6 BORDERLINE ECG Compared to ECG 02/02/2024 22:48:15 No significant changes Electronically Signed On 02-03-2024 06:28:17 CDT by Robert Dumont D.O.
[2024-02-03] MEDS: MORPHINE SULFATE (*CRX) 4 MG/ML INJ IV PUSH (00:25)
--- NOTE | 2024-02-03 00:34 | PM.IMHP ---
H&P: HPI History of Present Illness Date/Time: 02/03/24 00:34 Chief Complaint: chest pain Narrative: This is a 28 ye female with PMHx significant for Gestational HTN, Stroke, L hemiparesis. Comes to ED with complains of chest pain, retrosternal, on/off, worse with inspiration, deep breaths, non radiating, no fevers, no chills, no rigors, no night sweats, no n/v/d/abdominal pain, patient had been playing softball, no sob, no cough, no dizziness, no lightheadedness. Patient ruled out for PE placed in observation for further evaluation, management and treatment. 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 Comparison: None. FINDINGS: MEDIASTINUM: The cardiac silhouette is not enlarged. LUNGS: No infiltrates, effusions or pneumothorax. OTHER: No free air under the diaphragm. IMPRESSION: No acute cardiopulmonary pathology. CT brain wo con Ordering provider: Shemar Car MD History: 28 years Female with . Altered mental status . Comparison: March 20, 2022 Technique: CT of the head without contrast. The dose-length product was 681 mGy-cm. FINDINGS: BRAIN PARENCHYMA AND CSF SPACES: No midline shift, mass effect or hemorrhage. The brain parenchyma and CSF spaces are otherwise normal. VISUALIZED PARANASAL SINUSES: Well aerated. MASTOIDS: Well aerated. BONES: The bones appear intact. SOFT TISSUES: Visualized nasopharynx is normal. Superficial soft tissues are normal. IMPRESSION: No acute intracranial findings. CTA brain carotid Ordering provider: Shemar Car MD History: . Near syncope, prior CVA . Comparison: None. Technique: CT angiogram head and neck was performed following timed intravenous injection of contrast. Thin slice axial images and reformatted coronal images were obtained. Three dimensional reformatted images of the brain were also obtained using a [employer] workstation. The dose-length product was 987.27 mGy-cm. 150 ML Omnipaque 350 was given IV. FINDINGS: HEAD: --ANTERIOR AND MIDDLE CEREBRAL ARTERIES AND BRANCHES: Normal caliber and contour. --INTERNAL CAROTID ARTERIES: Normal caliber and contour. --BASILAR ARTERY AND BRANCHES: Normal caliber and contour. No atheromatous disease. --POSTERIOR CEREBRAL ARTERIES: Normal caliber and contour --POSTERIOR COMMUNICATING ARTERIES: Not visualized which is probably related to congenital absence or small size. --ANEURYSM: None visualized. --BRAIN: Please refer to report of CT head performed the same day. --BONES AND SUPERFICIAL SOFT TISSUES: Please refer to report of CT head performed the same day. --PARANASAL SINUSES AND MASTOIDS: Please refer to report of CT head done the same day. NECK: --RIGHT CERVICAL CAROTID SYSTEM: Normal caliber and contour. Percent stenosis per NASCET criteria is 0%. No carotid dissection. Otherwise, no significant atheromatous disease or stenosis of the cervical carotid system. --LEFT CERVICAL CAROTID SYSTEM: Normal caliber and contour. Percent stenosis per NASCET criteria is 0%. No carotid dissection. Otherwise, no significant atheromatous disease or stenosis of the cervical carotid system. --VERTEBRAL ARTERIES: Normal caliber and contour. --VISUALIZED AORTIC ARCH AND BRANCHING VESSELS: Normal caliber and contour. No significant atheromatous disease. --SOFT TISSUES: Normal. --CERVICAL SPINE: Normal. IMPRESSION: 1. Normal CTA head and neck. Percent stenosis per NASCET criteria is 0%. CTA chest PE protocol Ordering provider: Shemar Car MD History: 28 years Female with . Syncope evaluate for PE . Comparison: May 07, 2018 Technique: CT angiogram chest was performed following timed intravenous injection of contrast. Thin slice axial images and reformatted coronal images were obtained. Three dimensional reformatted images of the chest w
[2024-02-03 00:36] LABS: Troponin I < 0.012 ng/mL (0.000-0.034)
[2024-02-03 00:38] LABS: Reflex Lactic Acid Yes or No Add Lactic
[2024-02-03 01:06] LABS: Lactic Acid 0.7 mmol/L (0.7-2.0)
--- NOTE | 2024-02-03 01:49 | ADMGEN ---
This patient, Maurizio Tamayo, was admitted to IMU Room 207-01. Patient/family oriented to hospital policies and general routines including ID bracelet, bed and alarms, visiting hours, pain management, procedures, bathroom and other care routines, personal items, smoking policy, room service/diet, and visiting hours. Information on how to activate the Rapid Response Team has been discussed. Patient/Family are encouraged to report perceived risks to care and to ask questions if they do not understand what they are told or what they should do.
[2024-02-03 07:36] LABS: Troponin I < 0.012 ng/mL (0.000-0.034)
[2024-02-03] MEDS: ASPIRIN 81 MG ENTERIC TABLET PO (08:39)
[2024-02-03] MEDS: ACETAMINOPHEN 325 MG TABLET 650 MG PO (08:40)
[2024-02-03] MEDS: METOPROLOL SUCCINATE EXT REL 25 MG TABCR PO (08:40)
--- NOTE | 2024-02-03 12:06 | PM.DS ---
DS: Admitting Diagnosis Discharge Date 02/03/2024 Admitting Diagnosis Chest pain/near syncope DS: Discharge Diagnosis Discharge Diagnosis (1) Chest pain: Code(s): R07.9 - Chest pain, unspecified Status: Acute Assessment and Plan: Placed in observation Ruled out for PE Serial cardiac enzymes 2DECHO in am supportive care (2) Near syncope: Code(s): R55 - Syncope and collapse Status: Acute Assessment and Plan: ECHO Event monitor O/P Received fluids (3) Asthma: Code(s): J45.909 - Unspecified asthma, uncomplicated Status: Acute Assessment and Plan: stable (4) Arnold-Chiari deformity: Code(s): Q07.00 - Arnold-Chiari syndrome without spina bifida or hydrocephalus Status: Acute Assessment and Plan: stable CT no acute abnormality DS: Summary Hospital Course Reason for hospitalization: Chest pain/near syncope Hospital Course: Patient was a 28-year-old female who presented to the emergency department with complaints of chest pain and near-syncope. Patient reports prior to arrival she was outside playing softball when she began to have chest discomfort and feeling lightheaded all over patient does have a past medical history of a CVA when 2 years ago. Patient was seen and evaluated with no current deficit, troponins x3 negative an EKG showing sinus rhythm with no ST changes, initial CT head was negative for any acute issues, CTA head and neck showed no stenosis or occlusion, CT chest showed no PE and no acute cardiopulmonary pathology. Patient's orthostatic BP's were negative and an MRI was unremarkable other than bilateral mastoid effusions. An echocardiogram had been ordered unsure if it would be completed that day. Patient remains stable and denied any further chest pain, lightheadedness or near-syncope. Discharged patient home with a order for outpatient echocardiogram as as 30 day event monitor. Patient urged to seek medical attention if symptoms returned Status at Discharge Functional status at discharge: independent ambulation Overall status at discharge: patient is back to baseline Time Spent with Patient Time attestation: Total time spent providing and/or coordinating discharge services: Time spent: Greater than 30 minutes Exam Const: General: comfortable, no acute distress, well developed, alert, awake and average body habitus Nutritional Appearance: average body habitus Orientation/consciousness: patient oriented x3 Other: well appearing HENMT: Head: normal to inspection, normocephalic and atraumatic Ears: hearing grossly normal bilaterally Face/Nose/Sinus: normal facial exam Face and sinus: normal facial exam Eyes: General: appearance normal, both eyes and all related structures Pupils: Equal, round and reactive pupils present EOM: EOMs intact bilaterally Neck: Neck: full ROM, no lymphadenopathy and no JVD Thyroid: thyroid normal Lymphatic: no lymphadenopathy noted Resp: Effort & Inspection: normal respiratory effort and able to speak in complete sentences Auscultation: clear to auscultation bilaterally Cardio: Jugular venous distension: no JVD Rate: regular rate Rhythm: regular rhythm Heart sounds: S1 normal heart sound present and S2 normal heart sound present : General: Yes deferred Skin: Rashes: no rashes Wounds: no wounds Neuro: General: patient oriented x3 and CN's II-XI intact bilaterally Cranial nerves: Yes CN's II-XII intact bilaterally and Yes Equal, round and reactive pupils present Cognition (Neuro): normal cognition Speech: normal speech Gait exam (Neuro): Normal gait present Motor exam (neuro): 5/5 motor strength present throughout Extrem: General: normal to inspection, full ROM, no joint enlargement and no pedal edema DS: Data Data Completed and Pending Labs on day of discharge: Labs from last 24 hours 02/03/24 02/03/24 02/03/24 06:58 00:50 00:09 WBC
== END 2024-02-03 13:10 | disposition home or self-care (01) ==
LOC: ANHED 02-03 00:53 → ANHIMU 02-03 02:42
PROVIDERS: Admitting Provider Internal Medicine; Emergency Provider Emergency Medicine; PCP Nurse Practitioner Family; Visit Provider Nurse Practitioner Family
DX: R07.9 Chest pain, unspecified (principal); R55 Syncope and collapse; J45.909 Unspecified asthma, uncomplicated; Q07.00 Arnold-Chiari syndrome without spina bifida or hydrocephalus; Z86.73 Personal history of transient ischemic attack (TIA), and cerebral infarction without residual deficits
CPT/HCPCS: 36415; 70450; 70496; 70498; 70553; 71045; 71275; 80053; 81003; 81025; 83605; 83690; 83735; 83880; 84484; 85025; 85610; 85730; 93005; 96361; 96374; 99285; A9270; A9577; G0378; J2270; J7030; Q9967